=== PATIENT | female | born 1960 | race Caucasian/White ===

== ENCOUNTER 2022-07-21 06:06 | Day surgery (SDC) | payer MEDICAID ==
[~2022-07-21] VITALS: Ht 149.9 cm; Wt 69.1 kg
[2022-07-21 06:15] VITALS: BP 149/90
[2022-07-21] MEDS ORDERED: fentaNYL/PF 50MCG/1 ML 2ML syringe ONE (06:46)
[2022-07-21] MEDS ORDERED: MIDAZolam 1 MG/ML 5ML VIAL ONE (06:46)
[2022-07-21] MEDS ORDERED: LIDOcaine Viscous 15ml cup ONE (06:46)
[2022-07-21] MEDS ORDERED: LOSA25TA41 PO (06:48)
[2022-07-21] MEDS ORDERED: ESCI-8 PO (06:48)
[2022-07-21] MEDS ORDERED: BUPR-317 PO (06:48)
[2022-07-21] MEDS ORDERED: ASPI81TA52 PO (06:48)
[2022-07-21] MEDS ORDERED: OMEP20CA16 PO (06:48)
[2022-07-21] MEDS ORDERED: FLUT1BLS4 INH (06:48)
[2022-07-21 07:25] VITALS: BP 118/75
[2022-07-21 07:35] VITALS: BP 134/76
[2022-07-21 07:45] VITALS: BP 138/82
== END 2022-07-21 07:58 | disposition home or self-care (01) ==
LOC: GI LAB 06:06
PROVIDERS: ATTEND Surgery
DX: K44.9 Diaphragmatic hernia without obstruction or gangrene (principal); K21.9 Gastro-esophageal reflux disease without esophagitis; J44.9 Chronic obstructive pulmonary disease, unspecified; I12.9 Hypertensive chronic kidney disease with stage 1 through stage 4 chronic kidney disease, or unspecified chronic kidney disease; N18.30 Chronic kidney disease, stage 3 unspecified; Z79.899 Other long term (current) drug therapy; Z88.2 Allergy status to sulfonamides; Z88.5 Allergy status to narcotic agent
CPT/HCPCS: 43235; J2250; J3010; J7030; Z7512; 99152; A4620